=== PATIENT | female | born 1945 | race Caucasian/White ===

== ENCOUNTER 2016-09-24 14:56 | Emergency (ER) | payer MEDICARE, SELFPAY ==
[~2016-09-24 14:56] MED LIST: ADULT ASPIRIN81 MG; ASPIRIN325 MG; ASPIRIN81 M1 PO; ATENOLOL25 M1 PO; CALCIUM; CALCIUM 600 W/V1 TAB; CIPRO500 M2 PO; COLACE100 MG; COZAAR50 MG; CRESTOR10 MG; CRESTOR20 MG/TAB PO; CYCLOBENZAPRINE10 M1 PO; CYCLOBENZAPRINE10 MG; DARVOCET-N 1001 TAB; EFFEXOR XR150 MG; EFFEXOR XR75 M1 PO; FISH OIL 1,0001 CAP; FLAX SEED OIL1000 MG; GEMFIBROZIL600 M2 PO; GEMFIBROZIL600 MG; GLUCOPHAGE1000 M1 PO; GLUCOPHAGE1000 MG; HUMALOG PEN; HUMALOG100 UNIT/2 SC; HYDROCODON-ACE1 EA17 PO; LANTUS100 U/ML; LANTUS100 UNITS/ SC; LEVOTHYROXINE50 MC3 PO; LOSARTAN POTAS100 M1 PO; LYRICA; LYRICA100 MG/CAP PO; LYRICA50 MG; NAPROSYN500 MG; OMEPRAZOLE20 MG; SOMA350 MG; TOPROL XL50 MG; TRAMADOL HCL50 MG; ULTRAM50 M1 PO; ZOFRAN ODT4 MG PO
[2016-09-24] MEDS ORDERED: HYDROCODON-ACE1 EA16 PO ×2 (15:24)
[2016-09-24] MEDS ORDERED: LANTUS SOL100 UNIT/1 SC ×2 (15:31)
[2016-09-24] MEDS ORDERED: VITAMIN D31000 UNI3 PO (15:44)
[2016-09-24] MEDS ORDERED: PERCOCET 5-3251 EACH PO (17:46)
== END 2016-09-24 17:59 ==
LOC: EDMED 14:56
DX: S22.088A Other fracture of T11-T12 vertebra, initial encounter for closed fracture (principal); M54.5 Low back pain; G89.29 Other chronic pain; I10 Essential (primary) hypertension; E11.9 Type 2 diabetes mellitus without complications; Z79.82 Long term (current) use of aspirin; Z88.0 Allergy status to penicillin; Z88.2 Allergy status to sulfonamides; Z88.8 Allergy status to other drugs, medicaments and biological substances; W17.89XA Other fall from one level to another, initial encounter

== ENCOUNTER 2016-11-06 11:48 | Observation (INO) | payer MEDICARE, SELFPAY ==
[~2016-11-06 11:48] MED LIST changes: +HYDROCODON-ACE1 EA16 PO; +LANTUS SOL100 UNIT/1 SC; +PERCOCET 5-3251 EACH PO; +VITAMIN D31000 UNI3 PO
[2016-11-06] MEDS ORDERED: PERCOCET 5-3251 EACH PO (11:55)
[2016-11-06] MEDS ORDERED: ROSUVASTATIN CA20 MG PO (11:58)
[2016-11-06 12:42] LABS: BASO % 0.2 % (0-2); EOS % 1.9 % (0-7); EOSINOPHIL ABSOLUTE COUNT 0.1 tho/cmm (0.0-0.7); HCT-HEMATOCRIT 40.5 % (34.0-49.0); HGB-HEMOGLOBIN 13.9 gm/dl (12.0-15.5); IMMATURE GRANULOCYTES ABSOLUTE 0.01 tho/cmm (0-0.03); IMMATURE GRANULOCYTES PERCENT 0.2 % (0-0.3); LYMPH % 32.9 % (20-45); LYMPH ABSOLUTE COUNT 2.1 tho/cmm (0.8-4.5); MCH (MEAN CORPUSCULAR HGB) 30.8 pg (28.0-32.0); MCHC MEAN CORPUSCULAR HGB CONC 34.3 % (32.0-36.0); MCV (MEAN CELL VOLUME) 89.6 fl (82.0-96.0); MEAN PLATELET VOLUME 8.8 cmc (9.4-12.4); MONO % 11.2 % (0-12); MONOCYTE ABSOLUTE COUNT 0.7 tho/cmm (0.0-1.2); NEUTROPHIL ABSOLUTE COUNT 3.4 tho/cmm (1.6-8.0); NEUTROPHIL-AUTOMATED 3.4 tho/cmm (1.6-8.0); NEUTROPHILS % 53.6 % (40-80); PLATELET COUNT 251 tho/cmm (150-450); RED BLOOD COUNT 4.52 mil/cmm (4.00-5.20); RED CELL DISTRIBUTION WIDTH 12.9 % (12.4-16.4); WHITE BLOOD COUNT 6.3 tho/cmm (4.0-10.0)
[2016-11-06] MEDS ORDERED: IBUPROFEN200 M2 PO (12:55)
[2016-11-06 12:56] LABS: ANION GAP 11 mmol/L (0-20); BLOOD UREA NITROGEN 9 mg/dl (6-24); CALCIUM 9.3 mg/dl (8.5-10.5); CARBON DIOXIDE-VENOUS 27 mmol/L (22-32); CHLORIDE 104 mmol/l (96-110); CREATININE 0.88 mg/dl (0.50-1.10); GLUCOSE 114 mg/dL (70-110); POTASSIUM 4.2 mmol/L (3.7-5.1); SODIUM 138 mmol/L (135-145); eGFR VALUE FOR BLACK 78 mL/Min
[2016-11-06 15:36] LABS: URINE BILIRUBIN NEGATIVE (NEG); URINE BLOOD SMALL (NEG); URINE GLUCOSE (UA) NEGATIVE (NEG); URINE KETONE NEGATIVE (NEG); URINE LEUKOCYTE ESTERASE POSITIVE (NEG); URINE NITRITE POSITIVE (NEG); URINE PROTEIN NEGATIVE (NEG)
[2016-11-06 15:37] LABS: URINE APPEARANCE HAZY; URINE COLOR YELLOW
[2016-11-06 15:44] LABS: URINE AMORPHOUS 1+; URINE BACTERIA 3+
[2016-11-06 15:45] LABS: URINE EPITHELIAL CELLS 0-5 /[HPF] (0-10); URINE WBC 20-35 /[HPF] (0-5)
[2016-11-07] MEDS ORDERED: CIPRO500 M2 PO (18:17)
== END 2016-11-07 21:30 ==
LOC: EDMED 11:48 → EMR2 16:37 → CAR1 17:10
PROVIDERS: Emergency Medicine; Physician Assistant Medical; ADMIT Internal Medicine Interventional Cardiology
DX: R07.9 Chest pain, unspecified (principal); M48.54XA Collapsed vertebra, not elsewhere classified, thoracic region, initial encounter for fracture; I10 Essential (primary) hypertension; E78.5 Hyperlipidemia, unspecified; E11.9 Type 2 diabetes mellitus without complications; I25.10 Atherosclerotic heart disease of native coronary artery without angina pectoris; Z87.891 Personal history of nicotine dependence; Z82.49 Family history of ischemic heart disease and other diseases of the circulatory system; Z79.899 Other long term (current) drug therapy; Z98.890 Other specified postprocedural states
CPT/HCPCS: A9500; C8929; G0378; J1815; J2270; J2785; J7030